=== PATIENT | female | born 1995 | race African-American/Black ===

== ENCOUNTER 2019-07-10 15:50 | Emergency (ER) | payer BC, MEDICAID ==
[~2019-07-10] VITALS: Ht 149.9 cm; Wt 52.0 kg
[2019-07-10] MEDS ORDERED: SODIUM CHLORIDE 0.9% 1,000 ML IV ONE (16:07)
[2019-07-10 16:38] LABS: BASOPHILS % 0.3 % (0.0-2.0); EOSINOPHILS % 0.4 % (0.0-5.0); HEMOGLOBIN. 9.3 g/dL (12.0-16.0); LYMPHOCYTES % 44.9 % (20.0-50.0); MEAN CORPUSCULAR HEMOGLOBIN 24.1 pg (28.0-32.0); MEAN PLATELET VOLUME 8.8 fl (7.4-10.4); NEUTROPHILS % 46.4 % (40.0-76.0); PLATELET 242 x1000/uL (130-400); RED BLOOD CELL COUNT 3.84 mill/uL (4.2-5.4); RED CELL DISTRIBUTION WIDTH 16.7 % (11.6-14.6)
[2019-07-10 16:39] LABS: CHLORIDE 107 mEq/L (98-107)
[2019-07-10] MEDS ORDERED: POTASSIUM CHLORIDE 20MEQ TABLET SR PO NR (18:00)
[2019-07-10 18:23] VITALS: BP 101/60
== END 2019-07-10 18:35 | disposition home or self-care (01) ==
LOC: ER 15:50
DX: O26.892 Other specified pregnancy related conditions, second trimester (principal); R55 Syncope and collapse; Z3A.24 24 weeks gestation of pregnancy
CPT/HCPCS: 36415; 80053; 82962; 83880; 84484; 85025; 93005; 96360; 99285; J7030

== ENCOUNTER 2019-09-02 11:12 | Observation (INO) | payer BC ==
[~2019-09-02] VITALS: Ht 162.6 cm; Wt 52.2 kg
[2019-09-02] MEDS ORDERED: MULT-1146 MT (12:29)
[2019-09-02] MEDS ORDERED: ASPI-1497 MT (12:29)
[2019-09-02] MEDS ORDERED: LACTATED RINGERS 1,000 ML IV SCH (12:45)
[2019-09-02 13:18] LABS: BASOPHILS % 0.7 % (0.0-2.0); EOSINOPHILS % 0.1 % (0.0-5.0); HEMATOCRIT. 30.3 % (36.0-48.0); HEMOGLOBIN. 9.6 g/dL (12.0-16.0); LYMPHOCYTES % 31.5 % (20.0-50.0); MEAN CORPUSCULAR HEMOGLOBIN 22.1 pg (28.0-32.0); MEAN CORPUSCULAR VOLUME 69.7 fL (81.0-99.0); MEAN PLATELET VOLUME 10.2 fl (7.4-10.4); MONOCYTES % 6.3 % (2.0-8.0); NEUTROPHILS % 61.4 % (40.0-76.0); PLATELET 248 x1000/uL (130-400); RED BLOOD CELL COUNT 4.35 mill/uL (4.2-5.4); RED CELL DISTRIBUTION WIDTH 17.5 % (11.6-14.6)
[2019-09-02 13:39] LABS: CLARITY URINE CLEAR (CLEAR); COLOR URINE YELLOW (YELLOW); KETONES URINE 2+ (NEGATIVE); LEUKOCYTE ESTERASE URINE 1+ (NEGATIVE); NITRITE URINE NEGATIVE (NEGATIVE); OCCULT BLOOD URINE NEGATIVE (NEGATIVE); PH URINE 8.5 (4.5-8.0); PROTEIN URINE NEGATIVE (NEGATIVE); SPECIFIC GRAVITY URINE 1.012 (1.005-1.030)
[2019-09-02] MEDS ORDERED: BETAMETHASONE ACET/BETAMET 30 MG/5 ML VIAL IM SCH (14:00)
[2019-09-02 14:15] LABS: PLATELET ESTIMATE NORMAL
[2019-09-02] MEDS ORDERED: TERBUTALINE SULFATE 1MG/ML VIAL SUBCUT PRN (14:30)
== END 2019-09-02 15:00 | disposition home or self-care (01) ==
LOC: 8 EST LDRP 11:12
PROVIDERS: ADMIT Obstetrics & Gynecology; ATTEND Obstetrics & Gynecology
DX: Z34.90 Encounter for supervision of normal pregnancy, unspecified, unspecified trimester (principal); Z3A.19 19 weeks gestation of pregnancy; Z79.899 Other long term (current) drug therapy
CPT/HCPCS: 36415; 81003; 85025; 87070; 87086; 96360; 96361; 96372; 99281; G0378; J0702

== ENCOUNTER 2019-09-03 13:52 | Observation (INO) | payer BC ==
[~2019-09-03] VITALS: Ht 157.5 cm; Wt 50.3 kg
[~2019-09-03 13:52] MED LIST: ASPI-1497 MT; MULT-1146 MT
[2019-09-03] MEDS ORDERED: BETAMETHASONE ACET/BETAMET 30 MG/5 ML VIAL IM STA (14:22)
== END 2019-09-03 14:40 | disposition home or self-care (01) ==
LOC: 8 EST LDRP 13:52
PROVIDERS: ADMIT Obstetrics & Gynecology; ATTEND Obstetrics & Gynecology
DX: O34.90 Maternal care for abnormality of pelvic organ, unspecified, unspecified trimester (principal); Z3A.31 31 weeks gestation of pregnancy
CPT/HCPCS: 96372; 99281; G0378

== ENCOUNTER 2019-10-13 12:55 | Inpatient (IN) | payer BC ==
[~2019-10-13] VITALS: Ht 149.9 cm; Wt 52.2 kg
[2019-10-13] MEDS ORDERED: LACTATED RINGERS 1,000 ML IV SCH (15:09)
[2019-10-13] MEDS ORDERED: DEXT 5%/LR + PITOCIN 20UNITS/L 1,000 ML IV SCH ×2 (15:09→21:33)
[2019-10-13] MEDS ORDERED: METHYLERGONOVINE MALEATE 0.2 MG/ML IM PRN (15:15)
[2019-10-13] MEDS ORDERED: CARBOPROST TROMETHAMINE 250 MCG/ML AMPUL IM PRN (15:15)
[2019-10-13] MEDS ORDERED: BUTORPHANOL TARTRATE 2 MG/ML VIAL IV PRN (15:15)
[2019-10-13] MEDS ORDERED: LIDOCAINE HCL 1% 20ML VIAL (Pyxis) INJ INFIL SCH (15:15)
[2019-10-13] MEDS ORDERED: PENICILLIN G POTASSIUM 5 MMU in DEXT 5% WATER 100 ML IV NR (16:00)
[2019-10-13 17:31] LABS: CLARITY URINE CLOUDY (CLEAR); COLOR URINE YELLOW (YELLOW); KETONES URINE 3+ (NEGATIVE); LEUKOCYTE ESTERASE URINE 3+ (NEGATIVE); NITRITE URINE NEGATIVE (NEGATIVE); OCCULT BLOOD URINE 1+ (NEGATIVE); PH URINE 5.5 (4.5-8.0); PROTEIN URINE TRACE (NEGATIVE); SPECIFIC GRAVITY URINE 1.017 (1.005-1.030)
[2019-10-13 17:35] LABS: BASOPHILS % 0.3 % (0.0-2.0); HEMATOCRIT. 30.9 % (36.0-48.0); HEMOGLOBIN. 9.6 g/dL (12.0-16.0); LYMPHOCYTES % 16.7 % (20.0-50.0); MEAN CORPUSCULAR HEMOGLOBIN 20.7 pg (28.0-32.0); MEAN CORPUSCULAR VOLUME 66.4 fL (81.0-99.0); MEAN PLATELET VOLUME 9.6 fl (7.4-10.4); MONOCYTES % 3.6 % (2.0-8.0); NEUTROPHILS % 79.4 % (40.0-76.0); PLATELET 236 x1000/uL (130-400); RED BLOOD CELL COUNT 4.65 mill/uL (4.2-5.4); RED CELL DISTRIBUTION WIDTH 18.1 % (11.6-14.6)
[2019-10-13 17:46] LABS: PARTIAL THROMBOPLASTIN TIME 25.6 sec (23.4-31.0); PROTHROMBIN TIME 10.1 sec (9.6-11.0)
[2019-10-13 17:47] LABS: *AMPHETAMINES SCREEN URINE NEGATIVE (NEGATIVE)
[2019-10-13 17:48] LABS: *BARBITURATES SCREEN URINE NEGATIVE (NEGATIVE); *BENZODIAZEPINES SCREEN URINE NEGATIVE (NEGATIVE); *COCAINE SCREEN URINE NEGATIVE (NEGATIVE); METHADONE URINE SCREEN NEGATIVE (NEGATIVE); OPIATES URINE SCREEN NEGATIVE (NEGATIVE)
[2019-10-13 17:49] LABS: CANNABINOID URINE SCREEN NEGATIVE (NEGATIVE); PHENCYCLIDINE URINE SCREEN NEGATIVE (NEGATIVE)
[2019-10-13 18:16] LABS: PLATELET ESTIMATE NORMAL
[2019-10-13 18:58] LABS: HEPATITIS B SURFACE ANTIGEN NEGATIVE
[2019-10-13] MEDS ORDERED: ROPIVACAINE HCL/PF EPIDURAL 200 ML EPI SCH (19:00)
[2019-10-13] MEDS ORDERED: PENICILLIN G POTASSIUM 2.5 MMU in DEXTROSE 5% WATER 50 ML IV SCH (20:00)
[2019-10-13] MEDS ORDERED: BENZOCAINE/LANOLIN/ALOE VERA SPRAY TOP PRN (21:45)
[2019-10-13] MEDS ORDERED: RHO(D) IMMUNE GLOBULIN 300 MCG/SYR IM PRN (21:45)
[2019-10-13] MEDS ORDERED: BISACODYL 10MG SUPP PR PRN (21:45)
[2019-10-13] MEDS ORDERED: IBUPROFEN 400MG TABLET PO PRN (21:45)
[2019-10-13] MEDS ORDERED: HEMORRHOIDAL SUPP PR PRN (21:45)
[2019-10-13] MEDS ORDERED: OXYCODONE HCL/ACETAMINOPHEN 5/325MG TABLET PO PRN (21:45)
[2019-10-13] MEDS ORDERED: GLYCERIN/WITCH HAZEL LEAF MEDICATED PAD TOP PRN (21:45)
[2019-10-13] MEDS ORDERED: DIPHENHYDRAMINE 25MG CAPSULE PO PRN (21:45)
[2019-10-13] MEDS ORDERED: LANOLIN OINT 7GM TUBE TOP PRN (21:45)
[2019-10-13 21:57] LABS: BG BASE EXCESS -16.8 mmol/L (-2.0-2.0); BG FRACTION INSPIRED OXYGEN 21; BG PH 7.041 (7.350-7.450); BG PO2 < 30.3 mmHg (75.0-100.0); BG SAMPLE SITE CORD; BG VENT MODE ROOM AIR
[2019-10-13 21:59] LABS: BG FRACTION INSPIRED OXYGEN 21; BG HCO3 ACT 13.3 mmol/L (22.0-26.0); BG PCO2 58.9 mmHg (35.0-45.0); BG PO2 < 30.3 mmHg (75.0-100.0); BG SAMPLE SITE CORD; BG VENT MODE ROOM AIR
[2019-10-13 23:42] LABS: HEMATOCRIT. 29.8 % (36.0-48.0); HEMOGLOBIN. 9.3 g/dL (12.0-16.0); MEAN CORPUSCULAR HEMOGLOBIN 21.1 pg (28.0-32.0); MEAN CORPUSCULAR VOLUME 67.6 fL (81.0-99.0); MEAN PLATELET VOLUME 9.3 fl (7.4-10.4); PLATELET 239 x1000/uL (130-400); RED CELL DISTRIBUTION WIDTH 18.3 % (11.6-14.6)
[2019-10-14] VITALS: BP 106/56
[2019-10-14 04:00] VITALS: BP 105/58
[2019-10-14] MEDS: IBUPROFEN 800MG TABLET PO PRN ×3 (05:46→22:37)
[2019-10-14 07:30] VITALS: BP 94/56
[2019-10-14] MEDS: FERROUS SULFATE 325MG TABLET PO SCH (09:01)
[2019-10-14] MEDS: PRENATAL VIT/FE FUMARATE/FA TABLET PO SCH (09:01)
[2019-10-14] MEDS ORDERED: TETANUS, DIPHTHERIA, PERTUSSIS VAC/PF 0.5ML (>7YR OLD) IM ONE (12:00)
[2019-10-14 12:59] LABS: PLATELET ESTIMATE NORMAL
[2019-10-14 16:00] VITALS: BP 102/58
[2019-10-14 19:30] VITALS: BP 110/56
[2019-10-14] MEDS ORDERED: DOCUSATE SODIUM 100MG CAPSULE PO SCH (21:00)
[2019-10-14 23:45] VITALS: BP 103/62
[2019-10-15] MEDS: FERROUS SULFATE 325MG TABLET PO SCH (08:32)
[2019-10-15] MEDS: PRENATAL VIT/FE FUMARATE/FA TABLET PO SCH (08:33)
[2019-10-15 09:00] VITALS: BP 104/52
== END 2019-10-15 15:45 | disposition home or self-care (01) | DRG 806 ==
LOC: 8 EST LDRP 12:55 → OBSVTOIN 12:55 → 8EST 22:00
PROVIDERS: ADMIT Obstetrics & Gynecology; ATTEND Obstetrics & Gynecology
PROC: 10E0XZZ Delivery of Products of Conception, External Approach (ICD-10-PCS; principal; 2019-10-13)
PROC: 0W8NXZZ Division of Female Perineum, External Approach (ICD-10-PCS; 2019-10-13)
PROC: 3E0R3BZ Introduction of Anesthetic Agent into Spinal Canal, Percutaneous Approach (ICD-10-PCS; 2019-10-13)
PROC: 00HU33Z Insertion of Infusion Device into Spinal Canal, Percutaneous Approach (ICD-10-PCS; 2019-10-13)
DX: O60.14X0 Preterm labor third trimester with preterm delivery third trimester, not applicable or unspecified (principal); O99.354 Diseases of the nervous system complicating childbirth; Z37.0 Single live birth; O99.02 Anemia complicating childbirth; O99.52 Diseases of the respiratory system complicating childbirth; O99.284 Endocrine, nutritional and metabolic diseases complicating childbirth; J45.909 Unspecified asthma, uncomplicated; G40.909 Epilepsy, unspecified, not intractable, without status epilepticus; E55.9 Vitamin D deficiency, unspecified; D64.9 Anemia, unspecified; Z3A.36 36 weeks gestation of pregnancy
CPT/HCPCS: 36415; 36600; 80305; 81003; 82805; 85025; 86592; 86703; 86762; 86850; 86900; 87340; 90715; 99281; G0378; J0595; J2540; J2590; J2795; J7060; J7120